=== PATIENT | female | born 1985 | race Caucasian/White ===

== ENCOUNTER 2018-02-11 05:38 | Day surgery (SDC) | payer OTHER ==
[2018-02-09 10:32] LABS: HEMATOCRIT 42.5 % (36.0-47.0); HEMOGLOBIN 14.5 g/dL (12.0-15.5); MEAN CORPUSCULAR HEMOGLOBIN 29.2 pg (27.0-33.4); MEAN CORPUSCULAR HGB CONC 34.3 g/dL (32.0-36.0); MEAN CORPUSCULAR VOLUME 85 fl (80-97); PLATELET COUNT 264 10^3/uL (150-450); RED BLOOD COUNT 4.98 10^6/uL (3.72-5.28); RED CELL DISTRIBUTION WIDTH 13.9 % (11.5-14.0); WHITE BLOOD COUNT 7.9 10^3/uL (4.0-10.5)
[2018-02-09 10:37] LABS: APPEARANCE,URINE CLEAR; BILIRUBIN,URINE NEGATIVE (NEGATIVE); COLOR,URINE YELLOW; GLUCOSE, URINE NEGATIVE (NEGATIVE); KETONES,URINE NEGATIVE (NEGATIVE); LEUKOCYTE ESTERASE,URINE NEGATIVE (NEGATIVE); NITRITE,URINE NEGATIVE (NEGATIVE); PROTEIN,URINE NEGATIVE (NEGATIVE); UROBILINOGEN,URINE NEGATIVE mg/dL (<2.0)
[2018-02-09 10:48] LABS: ALANINE AMINOTRANSFERASE 25 U/L (9-52); ALBUMIN 4.3 g/dL (3.5-5.0); ALKALINE PHOSPHATASE 62 U/L (38-126); ANION GAP 9 (5-19); ASPARTATE AMINO TRANSFERASE 18 U/L (14-36); BILIRUBIN,DIRECT 0.3 mg/dL (0.0-0.4); BILIRUBIN,TOTAL 0.5 mg/dL (0.2-1.3); BLOOD UREA NITROGEN 10 mg/dL (7-20); CALCIUM 10.1 mg/dL (8.4-10.2); CARBON DIOXIDE 28 mmol/L (22-30); CHLORIDE 104 mmol/L (98-107); GLUCOSE 78 mg/dL (75-110); POTASSIUM 4.6 mmol/L (3.6-5.0); SODIUM 140.9 mmol/L (137-145); TOTAL PROTEIN 7.5 g/dL (6.3-8.2)
[~2018-02-11 05:38] MED LIST: CEFAZOLIN 1 GM/D5W RTU 1 GM/50 ML RTUPB IV ONE; CEFAZOLIN 1 GM/D5W RTU 1 GM/50 ML RTUPB IV PRN; LACTATED RINGERS 1000 ML IV PRN; LIDOCAINE 0.5% INJ-PF (5 MG/ML) 50 ML SDV SUBCUT PRN
[2018-02-11] MEDS ORDERED: LIDOCAINE 1% INJ-PF (10 MG/ML) 30 ML SDV ONE (06:33)
[2018-02-11] MEDS ORDERED: MIDAZOLAM 2 MG/2 ML INJ ONE (07:00)
[2018-02-11] MEDS ORDERED: KETAMINE HCL INJ 500 MG/10 ML VIAL ONE (07:00)
[2018-02-11] MEDS ORDERED: ACETAMINOPHEN 1,000 MG/100 ML RTUPB IV ONE (07:00)
[2018-02-11] MEDS ORDERED: PROPOFOL INJ 200 MG/20 ML VIAL IV ONE (07:00)
[2018-02-11] MEDS ORDERED: FENTANYL CITRATE INJ/PF 100 MCG/2 ML AMPUL ONE (07:00)
[2018-02-11] MEDS ORDERED: PROMETHAZINE HCL INJ 25 MG/1 ML VIAL IV PRN ×3 (07:19→08:30)
[2018-02-11] MEDS ORDERED: FENTANYL CITRATE INJ/PF 100 MCG/2 ML AMPUL IV PRN ×3 (07:19)
[2018-02-11] MEDS ORDERED: ONDANSETRON HCL INJ/PF 4 MG/2 ML SDV IV PRN (07:19)
[2018-02-11] MEDS ORDERED: DIPHENHYDRAMINE HCL 50 MG/ML VIAL IV PRN (07:19)
[2018-02-11] MEDS ORDERED: MEPERIDINE HCL/PF INJ 25 MG/1 ML DISP.SYRIN IV PRN (07:19)
[2018-02-11] MEDS ORDERED: OXYCODONE-ACETAMINOPHEN 5-325 MG TABLET PO PRN ×2 (08:30→08:31)
--- NOTE | 2018-02-11 08:36 | OPERATIVE REPORT E ---
Operative Report NAME: ADDISON ACEVES : 1985 AGE: 32Y DATE OF SURGERY: 02/11/2018 ROOM: PREOPERATIVE DIAGNOSIS: DYSFUNCTIONAL UTERINE BLEEDING WITH MENOMETRORRHAGIA. POSTOPERATIVE DIAGNOSIS: DYSFUNCTIONAL UTERINE BLEEDING WITH MENOMETRORRHAGIA. OPERATION: 1. Dilation and curettage. 2. Hysteroscopy. 3. Novasure. SURGEON: JOSE ROBERTO DAVIS M.D. ANESTHESIA: General. PERTINENT HISTORY/OPERATIVE FINDINGS: This is a 32-year-old with a history of menometrorrhagia. Tried various hormonal manipulations which did not seem to be helping. Ultimately, she decided to proceed with Novasure. She was no longer desirous of fertility. I think her had a vasectomy. At the time of surgery the vulva and vagina appeared to be normal. The cervix was consistent with the parity state. The uterus was slightly increased in size, a little bit boggy. Adnexa was negative. PROCEDURE: The patient was brought into the OR, placed on the table in a supine position, inducted under general anesthesia. Following this, she was repositioned in a dorsal lithotomy position, prepped and draped in a sterile fashion. The bladder was emptied of about 30 mL of clear yellow urine. A pelvic under anesthesia was performed with the above findings. Having accomplished this, a weighted speculum was inserted. The cervix was grasped on its anterior lip with a single-tooth tenaculum and an Allis clamp. The uterine cavity was sounded to 9 cm. The cervix was 3.5 cm, giving the cavity length of 5.5 cm. It was then dilated with Goodwin dilators to a #8. It was curetted with a small sharp curette. The hysteroscopy equipment was then brought into play. The saline was turned on. It was gently inserted through the cervical os into the cavity of the uterus. The cavity was inspected. There was no evidence of abnormal lesions. The excess saline was removed. The patient then had the Novasure opened up and gently inserted through the cervical os into the cavity. It was taken up to the fundus. It was opened up. It was pulled back. It was then manipulated in the north, south, east, west in a rotation fashion 3 times. This ascertained a cavity width of 4.3 with a cavity length of 5.5. The stopper was moved into place closing off the uterine cavity. The Novasure was empowered. The power was 130. Time of the burn was 1 minute 12 seconds. Having accomplished the burn, the equipment was removed. A hysteroscope was reinserted through the cervix into the endometrial cavity. We did see a good burn. This terminated. The excess saline was sucked out. The tenaculum and Allis were removed from the anterior lip of the cervix. There was no evidence of active bleeding. The vag speculum was removed. This terminated procedure. The anesthesia was DC. Patient was placed back in a supine position and transferred to the recovery room in satisfactory condition. ESTIMATED BLOOD LOSS: Negligible. DICTATING PHYSICIAN: JOSE ROBERTO DAVIS M.D. [id number] PHY#: [id number] ID: [id number] JOB#: [id number] ACCT: [id number] cc:JOSE ROBERTO DAVIS M.D. >
[2018-02-11 10:39] VITALS: BP 128/85
[2018-02-11] MEDS ORDERED: KETOROLAC TROMETHAMINE 60 MG/2 ML SDV ONE (11:02)
[2018-02-11] MEDS ORDERED: GLYCOPYRROLATE 1 MG/5 ML SYRINGE ONE (11:02)
[2018-02-11] MEDS ORDERED: DEXAMETHASONE SOD PHOSPHATE INJ 4 MG/1 ML VIAL ONE (11:02)
[2018-02-11] MEDS ORDERED: ONDANSETRON HCL INJ/PF 4 MG/2 ML SDV ONE (11:02)
[2018-02-11] MEDS ORDERED: METOCLOPRAMIDE HCL INJ/PF 10 MG/2 ML SDV ONE (11:02)
== END 2018-02-11 09:45 | disposition home or self-care (01) ==
LOC: OROUT 05:38
PROVIDERS: ATTEND Obstetrics & Gynecology
DX: N92.1 Excessive and frequent menstruation with irregular cycle (principal); N94.6 Dysmenorrhea, unspecified; F17.210 Nicotine dependence, cigarettes, uncomplicated
CPT/HCPCS: 36415; 85027; 81025; 80053; 81001; 88305 ×2; 58563; J2250; J0690; J1100; J1885; J3010; J2765; J2405; J2704; J0131; J3490; 952